=== PATIENT | male | born 1995 | race Caucasian/White ===

== ENCOUNTER → 2017-10-10 | Outpatient (CLI) | payer OTHER ==
[~2017-10-10] MED LIST: GADAVIST IV PRN; OXYC-57 PO
--- NOTE | 2017-10-10 12:00 | DIAGNOSTIC IMAGING REPORT ---
MR ARTHROGRAM OF THE RIGHT SHOULDER CLINICAL HISTORY: Right shoulder injury and pain. History of surgery and repetitive dislocations. COMPARISON STUDY: MR arthrogram of the right shoulder dated 07/25/2016. Radiographs of the right shoulder dated 08/14/2017. TECHNIQUE: Following the intra-articular administration of gadolinium contrast, MR arthrogram of the right shoulder was performed utilizing various T1 and T2 weighted sequences in the axial, sagittal, coronal planes. Note that interpretation is suboptimal without plain film correlate. FINDINGS: Rotator cuff: There is tendinopathy of the supraspinatous tendon with high-grade partial-thickness tearing at the leading edge. No full-thickness tear is clearly identified. The teres minor, subscapularis, and infraspinatus tendons appear maintained. There is no subacromial or subdeltoid bursal fluid. The acromioclavicular joint is unremarkable. 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 There is mild medial subluxation of the biceps tendon. The anchor is maintained. Labrum: Postoperative changes suggested involving the anterior aspect of the labrum. There is irregularity/tearing involving the anterior an inferior portions of the labrum. Superior labral tearing is also identified. Shoulder joint: The joint space is well distended with intra-articular contrast. The inferior glenohumeral ligaments are intact. There is a 5 mm full-thickness cartilage defect identified involving the posterior/inferior aspect of the labrum on axial image #14. There is a Hill-Sachs lesion identified in the posterior humeral head with mild associated marrow edema. Musculature and soft tissues: The musculature of the shoulder is normal in bulk and signal intensity. No atrophy is seen. IMPRESSION: 1. There is a Hill-Sachs lesion with mild associated marrow edema. 2. There is extensive labral tearing/fraying as above, greatest anteriorly and inferiorly. Some of this may be a postoperative basis. 3. There is a small full-thickness cartilage defect identified along the posterior/inferior aspect of the glenoid. 4. There is tendinopathy with a high-grade partial-thickness tear at the leading edge of the supraspinatous tendon. The rotator cuff is otherwise intact. 5. 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 This is similar to previous and a congenital variant is favored as opposed to a split thickness tear. Electronically signed by: Jhonathan Robertson M.D. 10/10/2017 11:59 AM Dictated Date/Time: 10/10/2017 11:51 AM
--- NOTE | 2017-10-10 12:05 | DIAGNOSTIC IMAGING REPORT ---
FLUOROSCOPICALLY GUIDED RIGHT SHOULDER ARTHROGRAM PRE-MRI CLINICAL HISTORY: RIGHT SHOULDER ARTHROGRAM PRE MRI COMPARISON STUDY: 07/25/2016 FINDINGS: A timeout was performed. The risks of the procedure were explained the patient informed consent was obtained. The patient was prepped and draped in sterile fashion. 30 seconds of fluoroscopic time was utilized. A single fluoroscopic spot image was acquired. Under fluoroscopic guidance, a 22-gauge spinal needle was introduced into the joint capsule. A mixture of Optiray 300 and Gadavist was instilled. A single fluoroscopic spot image documents intra-articular location of the contrast. The patient tolerated the procedure well and was sent to the MRI suite for further imaging. IMPRESSION: Successful fluoroscopically guided right shoulder gadolinium arthrogram pre-MRI. Electronically signed by: Alejo Garcia M.D. 10/10/2017 12:03 PM Dictated Date/Time: 10/10/2017 12:02 PM
== END | disposition home or self-care (01) ==
LOC: C.MRIBC 10:42
PROVIDERS: ATTEND Physical Medicine & Rehabilitation Sports Medicine
DX: S49.91XD Unspecified injury of right shoulder and upper arm, subsequent encounter (principal); X58.XXXD Exposure to other specified factors, subsequent encounter; M24.419 Recurrent dislocation, unspecified shoulder; S42.294A Other nondisplaced fracture of upper end of right humerus, initial encounter for closed fracture; S43.431A Superior glenoid labrum lesion of right shoulder, initial encounter; M24.111 Other articular cartilage disorders, right shoulder; M75.81 Other shoulder lesions, right shoulder; M67.921 Unspecified disorder of synovium and tendon, right upper arm; X58.XXXA Exposure to other specified factors, initial encounter

== ENCOUNTER 2018-02-15 19:32 | Emergency (ER) | payer OTHER ==
[~2018-02-15] VITALS: Ht 167.6 cm; Wt 64.0 kg
[~2018-02-15 19:32] MED LIST changes: -GADAVIST IV PRN
[2018-02-15 19:36] VITALS: TEMP 36.4; Ht 167.6 cm; Wt 64.0 kg
--- NOTE | 2018-02-15 20:01 | EMERGENCY ROOM VISIT NOTE ---
History Report prepared by Ana: Isaac Epstein Under the Supervision of: Dr. Shan Davis M.D. First contact with patient: 19:40 Chief Complaint: SHOULDER DISLOCATION Stated Complaint: ARM OUT OF JOINT History of Present Illness The patient is a 22 year old white male with a past medical history of shoulder surgery and shoulder dislocations who presents to the ED with a cc of worsening right shoulder pain beginning an hour ago after dislocating his shoulder while wrestling. Patient adds that he is "losing feeling in his hands". He states that his last shoulder dislocation occurred 3 weeks ago. He states that he has had surgery on both of his shoulders. Source of History: patient Onset: An hour ago Position: shoulder (right) Quality: sharp Timing: worsening Modifying Factors (Relieving): other (None) Associated Symptoms: + numbness Review of Systems See HPI for pertinent positives and negatives. A total of ten systems were reviewed and were otherwise negative. Past Medical & Surgical Medical Problems: (1) Shoulder dislocation Surgical Problems: (1) Hx of shoulder surgery Family History Patient reports no known family medical history. Social History Smoking Status: Never Smoker Current/Historical Medications No Active Prescriptions or Reported Meds Allergies Coded Allergies: No Known Allergies (Unverified , 02/15/18) Physical Exam Vital Signs Date Time Temp Pulse Resp B/P (MAP) Pulse Ox O2 Delivery O2 Flow Rate FiO2 02/15/18 21:07 82 20 128/76 98 02/15/18 19:36 36.4 70 18 156/78 96 Room Air Physical Exam GENERAL: Awake, alert, well-appearing, NAD HENT: Normocephalic, atraumatic. EYES: Normal conjunctiva. Sclera non-icteric. PERRL. No anisocoria. NECK: Supple. No nuchal rigidity. FROM. RESPIRATORY: CTAB, no rhonchi, wheezing, crackles CARDIAC: RRR, no MRG ABDOMEN: Soft, NTND, BS+ MSK: Sulcus sign present to R shoulder, No chest wall TTP, no LE edema NEURO: GCS 15, CN 2-12 intact, RUE mild paresthesias in the hand, M/U/R motor intact, 4/5 strength 2/2 to pain SKIN: No rash or jaundice noted. Medical Decision & Procedures ER Provider Diagnostic Interpretation: Radiology results as stated below per my review and radiologist interpretation: RIGHT SHOULDER 3 VIEWS HISTORY: Right shoulder pain. R shoulder s/p likely d/l and relocation COMPARISON: Right shoulder MRI 10/10/2017. Right shoulder 08/14/2017. FINDINGS: No dislocation at this time. No acute fractures identified. Sclerosis and irregularity at the anterior glenoid remains unchanged. This may be due to a combination of old trauma and postoperative change. Soft tissues are unremarkable. No radiopaque foreign bodies. IMPRESSION: 1. No acute fracture or dislocation. 2. Sclerosis and irregularity of the anterior glenoid remains unchanged. This is likely due to a combination of old trauma and postoperative change. Electronically signed by: Navi Blood M.D. 02/15/2018 8:48 PM Procedure Anterior Shoulder Dislocation Reduction Indication: Right anterior shoulder dislocation Verbal consent obtained. Risks and benefits were explained with the usual customary discussion. A time out was taken. Neurovascular examination before the procedure revealed decreased sensation but good radial pulse. The R shoulder glenohumeral dislocation was reduced by placing the patient sitting upright and applying gentle downward inline traction on the humerus, with the elbow flexed at 90 degrees, while scapula manipulation was applied. Patient's arm was then abducted and placed at his side which resulted in improvement in his discomfort and return of the humerus to its anatomical position. This resulted in an easy reduction without complication. Neurovascular examination after the procedure revealed patient NVI distally at M/U/R nerves. The patient had significant pain relief and tolerated the procedure well. ED Course 0: The patient was evaluated in room B2. A complete history and physical exam was performed. 3: I reevaluated the patient. Discussed results and discharge instructions. He verbalized understanding and agreement. The patient is ready for discharge. Medical Decision Nursing notes reviewed. Ancillary studies and prior records reviewed. The patient is a 22 year old white male with a past medical history of shoulder surgery and shoulder dislocations who presents to the ED with a cc of worsening right shoulder pain beginning an hour ago after dislocating his shoulder while wrestling. The patient's presentation and history were concerning for fracture, dislocation , neurovascular compromise, compartment syndrome, soft tissue injury, as well as others were entertained. Patient was seen and evaluated the bedside. 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 Patient does have a history of what he describes as anterior shoulder dislocations. Patient has had repairs in the past. Patient was having a fair amount of discomfort including paresthesias. Patient has good pulses. Patient did have a positive sulcus sign of the right shoulder. His humerus did seem to be anteriorly displaced. The patient requested that he be replaced without any pain medications or imaging. Patient was reduced. The patient had significant relief in his discomfort. The patient had increased mobility and sensory improvement of his right upper extremity. Patient did have right shoulder films completed. Did not show any acute dislocation or fracture. Patient declined a sling. Patient was told to follow- up with his PCP as well as his orthopedist for further treatment and care. The patient declined any pain medication. Patient was deemed suitable for outpatient follow-up and treatment at this time. Patient was given strict follow-up, discharge, and return precautions. All questions were answered. Patient was deemed suitable for outpatient follow-up at this time. Patient agreed with the plan of care and was safely discharged home. Medication Reconcilliation Current Medication List: was personally reviewed by me Blood Pressure Screening Patient's blood pressure: Normal blood pressure Blood pressure disposition: Did not require urgent referral Impression Primary Impression: Shoulder dislocation Additional Impression: Shoulder pain Scribe Attestation The scribe's documentation has been prepared under my direction and personally reviewed by me in its entirety. I confirm that the note above accurately reflects all work, treatment, procedures, and medical decision making performed by me. Departure Information Dispostion Home / Self-Care Prescriptions No Active Prescriptions or Reported Meds Referrals Corwin Ruiz (PCP) Patient Instructions Anatomy Shoulder, ED Dislocation Shoulder Red, [facility] Additional Instructions Please return to the emergency department if you have worsening or recurrent symptoms not amenable to at-home treatment. Please call for a follow-up appointment with her primary care physician. Please take your medications as prescribed. If you have other concerns and/or complaints please feel free to also call your primary care physician's office or return the ED for further evaluation, management, and treatment. You may take 800 mg Ibuprofen every 6 hours as needed for pain/fever with food unless told by your physician not to take NSAIDs. You may take tylenol 1000 mg every 6 hours as needed for pain/fever unless told by your physician to not take it or have liver problems. You may take motrin and tylenol separately or at the same time. Take your medications as prescribed. You have been examined and treated today on an emergency basis only. This is not a substitute for, or an effort to provide, complete comprehensive medical care. It is impossible to recognize and treat all injuries or illnesses in a single emergency department visit. It is therefore important that you follow up closely with [facility], your PCP, and/or your specialist(s). Call as soon as possible for an appointment. Thank you for your time and consideration. I look forward to speaking with you again soon. Please don't hesitate to call us if you have any questions. Problem Qualifiers Primary Impression: Shoulder dislocation Encounter type: initial encounter Laterality: right Qualified Codes: S43.004A - Unspecified dislocation of right shoulder joint, initial encounter Additional Impression: Shoulder pain Chronicity: acute Laterality: right Qualified Codes: M25.511 - Pain in right shoulder
--- NOTE | 2018-02-15 20:49 | DIAGNOSTIC IMAGING REPORT ---
RIGHT SHOULDER 3 VIEWS HISTORY: Right shoulder pain. R shoulder s/p likely d/l and relocation COMPARISON: Right shoulder MRI 10/10/2017. Right shoulder 08/14/2017. FINDINGS: No dislocation at this time. No acute fractures identified. Sclerosis and irregularity at the anterior glenoid remains unchanged. This may be due to a combination of old trauma and postoperative change. Soft tissues are unremarkable. No radiopaque foreign bodies. IMPRESSION: 1. No acute fracture or dislocation. 2. Sclerosis and irregularity of the anterior glenoid remains unchanged. This is likely due to a combination of old trauma and postoperative change. Electronically signed by: Navi Blood M.D. 02/15/2018 8:48 PM Dictated Date/Time: 02/15/2018 8:46 PM
[2018-02-15 21:07] VITALS: BP 128/76; PULSE 82; O2SAT 98
== END 2018-02-15 21:08 | disposition home or self-care (01) ==
LOC: C.EDB 19:33
DX: S43.004A Unspecified dislocation of right shoulder joint, initial encounter (principal); X58.XXXA Exposure to other specified factors, initial encounter; Y93.72 Activity, wrestling; Z98.890 Other specified postprocedural states